=== PATIENT | female | born 1990 | race Caucasian/White ===

== ENCOUNTER 2017-02-02 15:14 | Emergency (ER) | payer OTHER ==
[~2017-02-02 15:14] MED LIST: ERYTHROMYCIN O3.5 GM OD; HYDROCODON-ACE1 EAC7 PO; IBUPROFEN800 MG PO; MONDOXYNE NL100 MG PO; NO MEDICATIONS; PRENATA CHEWAB1 EAC1 PO; ZOLOFT50 MG
== END 2017-02-02 15:40 | disposition home or self-care (01) ==
LOC: SED 15:14
DX: L02.412 Cutaneous abscess of left axilla (principal)
CPT/HCPCS: 99282